=== PATIENT | female | born 1995 | race Caucasian/White ===

== ENCOUNTER 2021-09-26 20:33 | Emergency (ER) | payer SELFPAY ==
[2021-09-26 20:39] VITALS: BP 147/87; PULSE 73; RESP 18; TEMP 36.9; O2SAT 97; BMI 50.4
--- NOTE | 2021-09-26 20:43 | CTR_ITS ---
PROCEDURE INFORMATION: Exam: CT Abdomen And Pelvis With Contrast Exam date and time: 09/26/2021 8:43 PM Age: 26 years old Clinical indication: Abdominal pain; Localized; Left lower quadrant (llq); Patient HX: Llq/back pain with nausea and states red stools. Iud in place. ; Additional info: Abd pain TECHNIQUE: Imaging protocol: Computed tomography of the abdomen and pelvis with contrast. Radiation optimization: All CT scans at this facility use at least one of these dose optimization techniques: automated exposure control; mA and/or kV adjustment per patient size (includes targeted exams where dose is matched to clinical indication); or iterative reconstruction. Contrast material: OMNI 300; Contrast volume: 95 ml; Contrast route: INTRAVENOUS (IV); COMPARISON: CT Chest/Abdomen/Pelvis w IV* 12/31/2015 4:48 AM RADIATION DOSE METRICS: Total DLP (mGy-cm): 1892.9 FINDINGS: Lungs: The lung bases are clear. Liver: Unremarkable. Gallbladder and bile ducts: No definite gallbladder abnormality by CT. No biliary tree dilation. Pancreas: Unremarkable. Spleen: Unremarkable. Adrenal glands: Unremarkable. Kidneys and ureters: Somewhat small right kidney, similar to the prior exam. No hydronephrosis of either kidney. No visible ureteral calculus. No perinephric fluid. Stomach and bowel: No significant bowel distention. Possibility of mild diffuse mucosal/wall thickening involving the left colon, from the splenic flexure region through the sigmoid. However, this region of the colon is not well distended which limits evaluation. Therefore, the findings could be transient, and are somewhat equivocal at this time. While nonspecific, this appearance may be secondary to some form of colitis. Please correlate clinically. There are no CT findings to strongly suggest diverticulitis. Appendix: The appendix is visualized and appears normal. Intraperitoneal space: No free intraperitoneal air, or ascites. Vasculature: No evidence for abdominal aortic aneurysm. Somewhat prominent pelvic/adnexal veins bilaterally, greater on the the left. A similar appearance was seen on the prior exam. This is a nonspecific appearance, sometimes associated with pelvic congestion syndrome. However, clinical correlation is needed, as this CT appearance is often asymptomatic. Lymph nodes: No retroperitoneal adenopathy. Urinary bladder: The urinary bladder appears somewhat distended at the time of scanning. The urinary bladder measures 14 x 8.5 x 10 cm, estimated volume approximately 620 cc. Please correlate clinically. Reproductive: An IUD is present within the uterus. No definite abnormal ovarian/adnexal cyst or mass by CT. Bones/joints: No significant acute finding. Soft tissues: No significant acute finding. CT/CT abdomen pelvis w con* [id number] IMPRESSION: 1. Possibility of mild colitis involving the left colon, although the current CT findings are somewhat equivocal. See above discussion. 2. No free air or bowel distention. No evidence for bowel obstruction. 3. Normal appendix. 4. Somewhat distended urinary bladder, details above. 5. Prominent pelvic/adnexal veins bilaterally, see above discussion. 6. Other findings discussed above.
--- NOTE | 2021-09-26 20:49 | ED_ITS ---
HPI - Abdominal Pain General: Chief Complaint: Abdominal Pain Stated Complaint: Diarhhea, back pain, blood in stool Time Seen by Provider: 09/26/21 20:43 Source: patient Mode of arrival: ambulatory Limitations: no limitations History of Present Illness: 26-year-old female states that over the last days been having left lower quadrant abdominal cramping along with diarrhea. States that she had large amounts diarrhea throughout the day and started having some slight blood in her stool she is very small amount. She denies any fevers. She has had nausea no vomiting states the pain is cramping left lower quadrant rates it a 7 out of 10 denies any improving or worsening factors. Associated Symptoms: Reports diarrhea and nausea; Denies chills, dysuria and fever(s) Related Data: Date of Last Menstrual Period: 09/23/21 Review of Systems Const: Denies: fever(s), chills, body aches or change in appetite Eyes: Denies: blurry vision or eye discomfort ENMT: Denies: throat pain or dental pain Card: Denies: chest pain Resp: Denies: dyspnea GI: Reports: abdominal pain, nausea and diarrhea : Denies: dysuria Musc: Denies: neck pain or back pain Skin/Breast: Denies: rash Neuro: Denies: headache(s) Psych: Denies: depression Thor/Lymph: Denies: easy bruising All/Imm: Denies: urticaria PFSH ED PFSH: Family History (Updated 09/26/21 @ 20:50 by Carlos A Sotelo MD) Denies family history of CAD (coronary artery disease) Social History (Updated 09/26/21 @ 20:50 by Carlos A Sotelo MD) Substance/Drug Use: never Female Reproductive History: Date of last menstrual period: 09/23/21 Physical Exam Const: COMMON NORMALS: no acute distress, patient oriented x3 and healthy appearing HENMT: COMMON NORMALS: normocephalic and atraumatic HEAD & SCALP: normocephalic and atraumatic Eye: COMMON NORMALS: Equal, round and reactive pupils present and EOMs intact bilaterally PUPIL: Yes Equal, round and reactive pupils present Neck/C-Spine: COMMON NORMALS: full ROM and supple Chest: COMMONS NORMALS: normal inspection of the chest and normal palpation of entire chest wall Resp: COMMON NORMALS: normal respiratory effort, No retractions, No use of accessory muscles and clear to auscultation bilaterally AUSCULTATION: clear to auscultation bilaterally Cardio: COMMON NORMALS: regular rate, regular rhythm and No murmurs present (Cardio) RATE: regular rate RHYTHM: regular rhythm GI: COMMON NORMALS: Normal to inspection, nondistended, normoactive bowel sounds present, Soft to palpation, non-tender and no masses PALPATION: Yes Soft to palpation Extremity: COMMON NORMALS: normal to inspection and full ROM Neuro: COMMON NORMALS: patient oriented x3, moves all extremities and no focal motor deficits Psych: COMMON NORMALS: mental status grossly normal, Normal thought process present and cooperative THOUGHT PROCESS: Normal thought process present Skin: COMMON NORMALS: no rashes or lesions noted and no wounds GENERAL SKIN EXAM: no rashes or lesions noted Course Vital Signs: Vital signs: Vital Signs Temperature 98.4 F 09/26/21 20:39 Pulse Rate 61 09/26/21 22:37 Respiratory Rate 14 09/26/21 22:37 Blood Pressure 152/87 09/26/21 22:37 Pulse Oximetry 99 09/26/21 22:37 MDM - Abdominal Pain Medical Decision Making Patient presents here with abdominal pain some diarrhea CT showed a possible co litis she is very minimally tender here. Patient is stable for discharge will place her on Augmentin along with pain meds she understands agrees to plan. Lab Data : 09/26/21 20:55 09/26/21 21:22 Labs/Radiology: Radiology Impressions Abdomen/Pelvis CT 09/26/21 20:43 IMPRESSION: 1. Possibility of mild colitis involving the left colon, although the current CT findings are somewhat equivocal. See above discussion. 2. No free air or bowel distention. No evidence for bowel obstruction. 3. Normal appendix. 4. Somewhat distended urinary bladder, details above. 5. Prominent pelvic/adnexal veins bilaterally, see above discussion. 6. Other findings discussed above. Laboratory Results WBC 8.9 10^3/uL (4.0-10.0) 09/26/21 20:55 RBC 5.17 10^6/uL (4.1-5.3) 09/26/21 20:55 Hgb 13.2 g/dL (11.5-15.3) 09/26/21 20:55 Hct 42.6 % (37.0-47.0) 09/26/21 20:55 MCV 82.4 fl (81-99) 09/26/21 20: MCH 25.5 pg (28.0-34.0) L 09/26/21 20: MCHC 31.0 g/dL (30.0-36.0) 09/26/21 20: RDW 14.2 % (12.1-15.1) 09/26/21 20: Plt Count 298 10^3/cmm (130-400) 09/26/21 20: MPV 11.2 fL (7.4-10.4) H 09/26/21 20:55 Neut % (Auto) 67.2 % 09/26/21 20: Lymph % (Auto) 26.7 % 09/26/21 20: Frio % (Auto) 4.3 % 09/26/21 20: Eos % (Auto) 1.3 % 09/26/21 20: Baso % (Auto) 0.3 % 09/26/21 20: Neut # (Auto) 5.98 10^3/uL (1.8-7.7) 09/26/21 20: Lymph # (Auto) 2.4 10^3/uL (0.8-4.8) 09/26/21 20:55 Frio # (Auto) 0.4 10^3/uL (0.2-0.9) 09/26/21 20: Eos # (Auto) 0.1 10^3/uL (0.0-0.8) 09/26/21 20: Baso # (Auto) 0.0 10^3/uL (0.0-0.1) 09/26/21 20: Nucleated RBC % (auto) 0 % 09/26/21: Nucleated RBCs # 0.0 /100WBC 09/26/21 20: Sodium 138 mmol/L (136-145) 09/26/21:22 Potassium 4.0 mmol/L (3.5-5.1) 09/26/21: Chloride 104 mmol/L (98-107) 09/26/21: Carbon Dioxide 25 mmol/L (22-29) 02/18/22 21:22 Anion Gap 13.0 (5-19) 09/26/21 21:22 BUN 13 mg/dL (6-20) 09/26/21 21:22 Creatinine 0.6 mg/dL (0.5-0.9) 09/26/21 21:22 GFR Calculation 121.8 mL/min (90-130) 09/26/21 21:22 Glucose 105 mg/dL (65-115) 09/26/21 21:22 Calculated Osmolality 286 mOsm/kg (285-295) 09/26/21 21:22 Calcium 8.9 mg/dL (8.5-10.5) 09/26/21 21:22 Total Bilirubin 0.2 mg/dL (0.15-1.2) 09/26/21 21: AST 17 U/L (0-32) 09/26/21 21: ALT 23 U/L (0-33) 09/26/21 21: Alkaline Phosphatase 112 IU/L (35-105) H 09/26/21 21:22 Total Protein 7.0 g/dL (6.6-8.7) 09/26/21 21: Albumin 4.0 g/dL (3.5-5.2) 09/26/21 21: Globulin 3.0 g/dL (1.3-4.6) 09/26/21 21: Lipase 22 U/L (13-60) 09/26/21 21: HCG, Qual Negative (Negative) 09/26/21 21:22 Discharge Plan Discharge Patient Disposition: Home Clinical Impression: Colitis Prescriptions: New hydrocodone-acetaminophen 5-325 mg tablet 1 tab PO Q6H PRN (Reason: pain) Qty: 14 0RF ondansetron 4 mg tablet,disintegrating 4 mg PO Q6H PRN (Reason: nausea and vomiting) Qty: 14 0RF Augmentin 875-125 mg tablet 1 tab PO BID Qty: 14 0RF Discharge Orders: Discharge ED (Routine); Ordered 09/26/21 Ordered By: Carlos A Sotelo Referrals: [place],SANJANA Del ToroP [Family Provider] - 1-3 days Discharge Diet: Advance as tolerated Discharge Activity: Resume usual activity Patient Instructions: Colitis (ED), Opioid Safety Coding Level of Care Code ED Business Rules Developer for Chg Fwd Exam Comprehensive
[2021-09-26 20:53] VITALS: RESP 16; O2SAT 94
[2021-09-26] MEDS: sodium chloride 0.9% 1,000 ML 999 ML IV (20:53)
[2021-09-26] MEDS: morphine 4 mg/mL SDV 1 mL IVP (20:53)
[2021-09-26] MEDS: ondansetron 2 mg/ML SDV 2 mL 4 MG IVP (20:53)
[2021-09-26 21:01] LABS: Basophils % 0.3 %; Eosinophils # 0.1 10^3/uL (0.0-0.8); Eosinophils % 1.3 %; Hematocrit 42.6 % (37.0-47.0); Hemoglobin 13.2 g/dL (11.5-15.3); Lymphocytes # 2.4 10^3/uL (0.8-4.8); Lymphocytes % 26.7 %; Mean Corpuscular Hemoglobin 25.5 pg (28.0-34.0); Mean Corpuscular Volume 82.4 fl (81-99); Mean Platelet Volume 11.2 fL (7.4-10.4); Monocytes # 0.4 10^3/uL (0.2-0.9); Monocytes % 4.3 %; Neutrophils # 5.98 10^3/uL (1.8-7.7); Neutrophils % 67.2 %; Nucleated Red Blood Cells % 0 %; Platelet Count 298 10^3/cmm (130-400); Red Blood Count 5.17 10^6/uL (4.1-5.3); Red Cell Distribution Width 14.2 % (12.1-15.1); White Blood Count 8.9 10^3/uL (4.0-10.0)
[2021-09-26 21:40] LABS: HCG, Serum Qual Negative (Negative)
[2021-09-26 21:50] LABS: Alanine Aminotransferase 23 U/L (0-33); Alkaline Phosphatase 112 IU/L (35-105); Aspartate Amino Transferase 17 U/L (0-32); Blood Urea Nitrogen 13 mg/dL (6-20); Calcium 8.9 mg/dL (8.5-10.5); Carbon Dioxide 25 mmol/L (22-29); Chloride 104 mmol/L (98-107); Glomerular Filtration Rate 121.8 mL/min (90-130); Glucose 105 mg/dL (65-115); Lipase 22 U/L (13-60); Osmolality Calculated 286 mOsm/kg (285-295); Sodium 138 mmol/L (136-145); Total Bilirubin 0.2 mg/dL (0.15-1.2)
[2021-09-26] MEDS: iohexol 300 mg/mL 100 mL Btl IV (21:53)
[2021-09-26 22:37] VITALS: BP 152/87; PULSE 61; RESP 14; O2SAT 99
--- NOTE | 2021-09-26 22:38 | PC.NURSE ---
Pt updated on plan of care, VSS, no immediate needs identified at this time, will continue to monitor.
== END 2021-09-26 23:20 | disposition home or self-care (01) ==
PROVIDERS: Emergency Provider Emergency Medicine; Family Provider Nurse Practitioner Family
DX: K52.9 Noninfective gastroenteritis and colitis, unspecified (principal)
CPT/HCPCS: 74177; 80053; 83690; 84703; 85025; 96361; 96374; 96375; 99283; J2270; J2405; J7030; Q9967

== ENCOUNTER 2021-12-18 11:22 | Outpatient (CLI) | payer OTHER, SELFPAY ==
--- NOTE | 2021-12-18 11:29 | XR_ITS ---
WS: [id number] LEFT FEMUR: 2 VIEW(S) TECHNIQUE: AP and lateral. HISTORY: ABNORMAL FINDINGS ON DIAGNOSTIC IMAGING COMPARISON: None available. No fracture or dislocation. Soft tissues are unremarkable. No foreign body or calcification. Benign bone island proximal LEFT femur. XR/XR femur LT min 2V* [id number] Impression: Normal LEFT femur. By history there is an abnormal radiograph. No prior study for review.
--- NOTE | 2021-12-18 11:29 | XR_ITS ---
WS: [id number] RIGHT FEMUR: 2 VIEW(S) TECHNIQUE: AP and lateral. HISTORY: ABNORMAL FINDINGS ON DIAGNOSTIC IMAGING COMPARISON: None available. No fracture or dislocation. Soft tissues are unremarkable. No foreign body or calcification. XR/XR femur RT min 2V* [id number] Impression: Normal RIGHT femur. No prior studies for comparison. By history there is an abnormal examination in the past. These images are not available for review or comparison.
== END 2021-12-18 11:23 | disposition home or self-care (01) ==
PROVIDERS: PCP Nurse Practitioner Family; Visit Provider Nurse Practitioner Family
DX: R93.7 Abnormal findings on diagnostic imaging of other parts of musculoskeletal system (principal)
CPT/HCPCS: 73552